=== PATIENT | female | born 1935 | race Caucasian/White ===

== ENCOUNTER 2019-01-11 20:01 | Inpatient (IN) | payer OTHER, MEDICARE ==
[~2019-01-11] VITALS: Ht 157.5 cm; Wt 34.5 kg
[2019-01-11 20:03] VITALS: BP_SYST 139
[2019-01-11] MEDS ORDERED: DEXAMETHASONE SOD PHOSPHATE 10 MG/ML VIAL IVP ONE (20:30)
[2019-01-11] MEDS ORDERED: IPRATROPIUM/ALBUTEROL SULFATE 3 ML AMPUL.NEB (DUONEB) INH ONE ×2 (20:30→21:30)
[2019-01-11] MEDS ORDERED: ACETAMINOPHEN 325 MG TABLET PO ONE (20:30)
[2019-01-11] MEDS ORDERED: ALBU2.5V7 INH (20:53)
[2019-01-11] MEDS ORDERED: ACET-2165 PO (20:53)
[2019-01-11] MEDS ORDERED: BISA10SU61 RC (20:54)
[2019-01-11] MEDS ORDERED: FLUT1AER INH (20:55)
[2019-01-11] MEDS ORDERED: BUPR150T9 PO (20:56)
[2019-01-11] MEDS ORDERED: ESCI10TA PO (20:57)
[2019-01-11] MEDS ORDERED: DOCU250C14 PO (20:57)
[2019-01-11] MEDS ORDERED: FLEETMO RC (20:58)
[2019-01-11 21:01] LABS: HEMATOCRIT 46.5 % (36-48); HEMOGLOBIN 14.8 g/dL (12.0-16.0); RED BLOOD CELL COUNT(AUTO) 5.28 MIL/uL (4.2-6.2); WHITE BLOOD COUNT (AUTO) 14.4 K/uL (4.8-10.8)
[2019-01-11 21:02] LABS: MEAN CORPUSCULAR HEMOGLOBIN 28 pg (27-31); MEAN CORPUSCULAR HGB CONC 32 % (32-36); MEAN CORPUSCULAR VOLUME 88 fL (79.0-98.0); PLATELET COUNT (AUTO) 336 K/uL (130-430); RED CELL DISTRIBUTION WIDTH 18.9 % (9.0-15.0)
[2019-01-11 21:04] LABS: PROTHROMBIN TIME 9.8 SECS (9.5-12.5)
[2019-01-11] MEDS ORDERED: NS 500 ML IV ONE (21:06)
[2019-01-11 21:11] LABS: BAND % (MANUAL) 2 % (0-6); BASOPHILS % (MANUAL) 0 % (0-2); EOSINOPHILS % (MANUAL) 0 % (0-7); LYMPHOCYTES % (MANUAL) 2 % (20-46); MONOCYTES % (MANUAL) 3 % (0-11)
[2019-01-11] MEDS ORDERED: GUAI100S14 PO (21:21)
[2019-01-11] MEDS ORDERED: IPRA4AER INH ×2 (21:25→21:26)
[2019-01-11] MEDS ORDERED: LACT10SO6 PO (21:27)
[2019-01-11] MEDS ORDERED: LEVO88TA5 PO (21:28)
[2019-01-11] MEDS ORDERED: MEDR5TAB PO (21:30)
[2019-01-11] MEDS ORDERED: MEGE800O PO (21:31)
[2019-01-11] MEDS ORDERED: METO25TA6 PO (21:32)
[2019-01-11] MEDS ORDERED: MULT-1100 PO (21:33)
[2019-01-11] MEDS ORDERED: PRED10TA PO (21:33)
[2019-01-11] MEDS ORDERED: PRED20TA PO (21:34)
[2019-01-11] MEDS ORDERED: PRO40 PO (21:35)
[2019-01-11] MEDS ORDERED: SENN8.6T19 PO (21:36)
[2019-01-11] MEDS ORDERED: TEMA15CA5 PO (21:36)
[2019-01-11] MEDS ORDERED: SPIRIVA INH (21:39)
[2019-01-11] MEDS ORDERED: TRAM50TA2 PO (21:40)
[2019-01-11] MEDS ORDERED: VIT60OIN3 TP (21:41)
[2019-01-11 22:01] LABS: ALANINE AMINOTRANSFERASE 17 U/L (12-78); ANION GAP 7 (5-15); ASPARTATE AMINOTRANSFERASE 22 U/L (10-37); CHLORIDE 101 mmol/L (98-107); CREATININE 1.45 mg/dL (0.55-1.30); GLUCOSE 131 mg/dL (70-99); POTASSIUM 5.2 mmol/L (3.5-5.1); SODIUM SERUM 132 mmol/L (136-145); TOTAL BILIRUBIN 0.7 mg/dL (0.0-1.0); UREA NITROGEN, BLOOD 64 mg/dL (8-21)
[2019-01-11 22:02] LABS: ALBUMIN 3.1 g/dL (3.4-4.8)
[2019-01-11] MEDS ORDERED: GAVISCON PO (22:03)
[2019-01-11] MEDS ORDERED: SODIUM CHLORIDE (22:05)
[2019-01-11 22:07] LABS: BILIRUBIN,URINE NEGATIVE (NEGATIVE); BLOOD, URINE 3+ (NEGATIVE); CLARITY/URINE SL CLOUDY (CLEAR); COLOR,URINE YELLOW (YELLOW); GLUCOSE,URINE NEGATIVE (NEGATIVE); KETONES,URINE NEGATIVE (NEGATIVE); LEUKOCYTE ESTERASE ,URINE 3+ (NEGATIVE); NITRITE, URINE NEGATIVE (NEGATIVE); PROTEIN URINE 2+ (NEGATIVE)
[2019-01-11 22:18] LABS: BACTERIA,URINE MANY /HPF (None Seen); MUCUS,URINE None Seen /LPF (None Seen); WBC,URINE >100 /HPF (0-3)
[2019-01-11] MEDS ORDERED: SODIUM POLYSTYRENE SULFONATE 15 GM/60 ML UDBTL PO ONE (22:30)
[2019-01-11 23:37] VITALS: BP_SYST 138
[2019-01-11] MEDS ORDERED: guaiFENesin 200 MG/10 ML UDC PO SCH (23:45)
[2019-01-11] MEDS ORDERED: DOCUSATE SODIUM 250 MG CAPSULE PO PRN (23:45)
[2019-01-11] MEDS ORDERED: BISACODYL 10 MG/SUPPOSITORY RC PRN (23:45)
[2019-01-11] MEDS ORDERED: GAVISCON PO SCH (23:45)
[2019-01-11] MEDS ORDERED: MINERAL OIL 133 ML ENEMA RC PRN (23:45)
[2019-01-11] MEDS ORDERED: ACETAMINOPHEN 325 MG TABLET PO PRN (23:45)
[2019-01-11] MEDS ORDERED: traMADol HCL HCL 50 MG TABLET (ULTRAM) PO PRN (23:45)
[2019-01-12] MEDS ORDERED: ONDANSETRON HCL 4 MG/2 ML VIAL IVP PRN
[2019-01-12] MEDS ORDERED: GENTAMICIN 80 mg/100 mL NS 100 ML IV ONE
[2019-01-12] MEDS ORDERED: FAMOTIDINE PF 20 MG/2 ML VIAL IVP ONE (00:15)
[2019-01-12] MEDS ORDERED: NS IV ONE ×2 (02:00→03:25)
[2019-01-12] MEDS ORDERED: GENTAMICIN 80 MG/100 ML IV ONE ×2 (02:00→03:25)
[2019-01-12] MEDS: IPRATROPIUM/ALBUTEROL SULFATE 3 ML AMPUL.NEB (DUONEB) INH SCH ×6 (03:14→23:00)
[2019-01-12 03:36] VITALS: BP_SYST 138
[2019-01-12] MEDS: METOPROLOL TARTRATE 25 MG TABLET PO SCH ×3 (05:17→22:12)
[2019-01-12 07:22] LABS: BASOPHILS # (AUTO) 0.1 K/uL (0.0-0.2); BASOPHILS % (AUTO) 0.5 % (0.0-2.0); EOSINOPHILS % (AUTO) 0.2 % (0.0-4.0); HEMATOCRIT 37.5 % (36-48); HEMOGLOBIN 12.1 g/dL (12.0-16.0); LYMPHOCYTES # (AUTO) 0.3 K/uL (1.0-5.5); LYMPHOCYTES % (AUTO) 1.9 % (20.5-51.5); MEAN CORPUSCULAR HEMOGLOBIN 28 pg (27-31); MEAN CORPUSCULAR HGB CONC 32 % (32-36); MEAN CORPUSCULAR VOLUME 87 fL (79.0-98.0); MONOCYTES # (AUTO) 0.4 K/uL (0.0-1.0); NEUTROPHILS # (AUTO) 13.9 K/uL (1.8-7.7); NEUTROPHILS % (AUTO) 94.4 % (40.0-70.0); PLATELET COUNT (AUTO) 291 K/uL (130-430); RED BLOOD CELL COUNT(AUTO) 4.31 MIL/uL (4.2-6.2); RED CELL DISTRIBUTION WIDTH 18.1 % (9.0-15.0); WHITE BLOOD COUNT (AUTO) 14.8 K/uL (4.8-10.8)
[2019-01-12 07:30] LABS: ALANINE AMINOTRANSFERASE 20 U/L (12-78); ALBUMIN 2.9 g/dL (3.4-4.8); ANION GAP 10 (5-15); ASPARTATE AMINOTRANSFERASE 22 U/L (10-37); CALCIUM 8.4 mg/dL (8.4-11.0); CHLORIDE 103 mmol/L (98-107); FREE T4 (FREE THYROXINE) 0.5 ng/dL (0.6-1.6); GLUCOSE 111 mg/dL (70-99); PHOSPHORUS 3.6 mg/dL (2.7-4.5); POTASSIUM 4.4 mmol/L (3.5-5.1); SODIUM SERUM 136 mmol/L (136-145); THYROID STIMULATING HORMONE 1.48 uIu/mL (0.34-4.82); TOTAL BILIRUBIN 0.7 mg/dL (0.0-1.0); UREA NITROGEN, BLOOD 59 mg/dL (8-21)
[2019-01-12 08:00] VITALS: BP_SYST 114
[2019-01-12] MEDS ORDERED: LACTULOSE 20 GM/30 ML UDC PO PRN (08:00)
[2019-01-12] MEDS ORDERED: VITS A AND D/WHITE PET/LANOLIN 113.4 GM TUBE TP PRN (08:00)
[2019-01-12] MEDS: methylPREDNISolone SOD SUCC 40 MG/ML VIAL IVP SCH ×2 (08:24→19:57)
[2019-01-12] MEDS: FLUTICASONE/VILANTEROL 1 EACH BLST.W.DEV INH SCH (08:24)
[2019-01-12] MEDS: MEGESTROL ACETATE 400 MG/10 ML UDC PO SCH (08:25)
[2019-01-12] MEDS: PANTOPRAZOLE SODIUM 40 MG TAB PO SCH (08:25)
[2019-01-12] MEDS: MULTIVITS,CA,MINERALS/IRON/FA 1 TABLET PO SCH (08:25)
[2019-01-12] MEDS: FAMOTIDINE PF 20 MG/2 ML VIAL IVP SCH (08:25)
[2019-01-12] MEDS: LEVOTHYROXINE SODIUM 0.088 MG TABLET PO SCH (08:27)
[2019-01-12 11:38] VITALS: BP_SYST 110
[2019-01-12] MEDS: D5/0.45 NS 1,000 ML IV SCH ×2 (14:53)
[2019-01-12 15:14] VITALS: BP_SYST 132
[2019-01-12 19:16] VITALS: BP_SYST 138
[2019-01-12] MEDS: LEVOFLOXACIN 250 MG/D5W 50 ML IV SCH (19:57)
[2019-01-12] MEDS: MIRTAZAPINE 15 MG TABLET PO SCH (22:09)
[2019-01-12 23:44] VITALS: BP_SYST 115
[2019-01-13] MEDS: IPRATROPIUM/ALBUTEROL SULFATE 3 ML AMPUL.NEB (DUONEB) INH SCH ×6 (03:00→23:27)
[2019-01-13 05:06] VITALS: BP_SYST 153
[2019-01-13] MEDS: D5/0.45 NS 1,000 ML IV SCH ×2 (05:10→18:52)
[2019-01-13] MEDS: METOPROLOL TARTRATE 25 MG TABLET PO SCH ×3 (06:20→21:01)
[2019-01-13] MEDS: LEVOTHYROXINE SODIUM 0.088 MG TABLET PO SCH (06:20)
[2019-01-13 07:12] LABS: HEMATOCRIT 41.1 % (36-48); RED BLOOD CELL COUNT(AUTO) 4.66 MIL/uL (4.2-6.2); WHITE BLOOD COUNT (AUTO) 10.9 K/uL (4.8-10.8)
[2019-01-13 07:13] LABS: BASOPHILS % (AUTO) 0.2 % (0.0-2.0); LYMPHOCYTES # (AUTO) 0.2 K/uL (1.0-5.5); LYMPHOCYTES % (AUTO) 2.3 % (20.5-51.5); MEAN CORPUSCULAR HEMOGLOBIN 28 pg (27-31); MEAN CORPUSCULAR HGB CONC 32 % (32-36); MEAN CORPUSCULAR VOLUME 88 fL (79.0-98.0); MONOCYTES % (AUTO) 4.4 % (1.7-9.3); NEUTROPHILS # (AUTO) 10.1 K/uL (1.8-7.7); NEUTROPHILS % (AUTO) 93.1 % (40.0-70.0); PLATELET COUNT (AUTO) 286 K/uL (130-430)
[2019-01-13 07:14] LABS: MONOCYTES # (AUTO) 0.5 K/uL (0.0-1.0)
[2019-01-13 07:47] VITALS: BP_SYST 131
[2019-01-13 08:17] LABS: ALANINE AMINOTRANSFERASE 20 U/L (12-78); ANION GAP 5 (5-15); ASPARTATE AMINOTRANSFERASE 23 U/L (10-37); CALCIUM 8.5 mg/dL (8.4-11.0); CHLORIDE 105 mmol/L (98-107); CREATININE 0.75 mg/dL (0.55-1.30); GLUCOSE 105 mg/dL (70-99); POTASSIUM 4.5 mmol/L (3.5-5.1); SODIUM SERUM 139 mmol/L (136-145); THYROID STIMULATING HORMONE 2.77 uIu/mL (0.34-4.82); TOTAL BILIRUBIN 0.6 mg/dL (0.0-1.0); UREA NITROGEN, BLOOD 41 mg/dL (8-21)
[2019-01-13] MEDS ORDERED: MAG-AL HYDROX/SIMETH 30 ML UDC PO PRN (08:30)
[2019-01-13] MEDS: PANTOPRAZOLE SODIUM 40 MG TAB PO SCH (09:29)
[2019-01-13] MEDS: methylPREDNISolone SOD SUCC 40 MG/ML VIAL IVP SCH ×2 (09:29→20:52)
[2019-01-13] MEDS: FAMOTIDINE PF 20 MG/2 ML VIAL IVP SCH (09:29)
[2019-01-13] MEDS: MEGESTROL ACETATE 400 MG/10 ML UDC PO SCH (09:29)
[2019-01-13] MEDS: MULTIVITS,CA,MINERALS/IRON/FA 1 TABLET PO SCH (09:29)
[2019-01-13] MEDS: FLUTICASONE/VILANTEROL 1 EACH BLST.W.DEV INH SCH (09:43)
[2019-01-13 12:39] VITALS: BP_SYST 145
[2019-01-13 16:18] VITALS: BP_SYST 149
[2019-01-13 20:30] VITALS: BP_SYST 132
[2019-01-13] MEDS: LEVOFLOXACIN 250 MG/D5W 50 ML IV SCH (20:50)
[2019-01-13] MEDS: MIRTAZAPINE 15 MG TABLET PO SCH (20:53)
[2019-01-14 01:05] VITALS: BP_SYST 144
[2019-01-14] MEDS: IPRATROPIUM/ALBUTEROL SULFATE 3 ML AMPUL.NEB (DUONEB) INH SCH ×3 (03:00→11:37)
[2019-01-14 06:10] VITALS: BP_SYST 162
[2019-01-14] MEDS: LEVOTHYROXINE SODIUM 0.088 MG TABLET PO SCH (06:16)
[2019-01-14] MEDS: METOPROLOL TARTRATE 25 MG TABLET PO SCH ×2 (06:16→14:19)
[2019-01-14 07:45] VITALS: BP_SYST 132
[2019-01-14] MEDS ORDERED: GENTAMICIN 80 MG/ ISO-OSM 100 ML PREMIX IV SCH (09:00)
[2019-01-14] MEDS: MEGESTROL ACETATE 400 MG/10 ML UDC PO SCH (09:31)
[2019-01-14] MEDS: FAMOTIDINE PF 20 MG/2 ML VIAL IVP SCH (09:31)
[2019-01-14] MEDS: MULTIVITS,CA,MINERALS/IRON/FA 1 TABLET PO SCH (09:31)
[2019-01-14] MEDS: PANTOPRAZOLE SODIUM 40 MG TAB PO SCH (09:31)
[2019-01-14] MEDS: methylPREDNISolone SOD SUCC 40 MG/ML VIAL IVP SCH (09:31)
[2019-01-14] MEDS: FLUTICASONE/VILANTEROL 1 EACH BLST.W.DEV INH SCH (09:33)
[2019-01-14] MEDS: D5/0.45 NS 1,000 ML IV SCH (09:33)
[2019-01-14 12:31] VITALS: BP_SYST 152
[2019-01-14 15:29] VITALS: BP_SYST 134
== END 2019-01-14 15:50 | disposition hospice, inpatient (51) | DRG 871 ==
LOC: SED 20:01 → STU 22:42
PROVIDERS: ADMIT Internal Medicine; ATTEND Family Medicine
DX: A41.9 Sepsis, unspecified organism (principal); J96.21 Acute and chronic respiratory failure with hypoxia; E43 Unspecified severe protein-calorie malnutrition; J44.1 Chronic obstructive pulmonary disease with (acute) exacerbation; I50.30 Unspecified diastolic (congestive) heart failure; R64 Cachexia; Z68.1 Body mass index [BMI] 19.9 or less, adult; N39.0 Urinary tract infection, site not specified; E87.1 Hypo-osmolality and hyponatremia; J44.0 Chronic obstructive pulmonary disease with (acute) lower respiratory infection; E03.9 Hypothyroidism, unspecified; E86.0 Dehydration; F03.90 Unspecified dementia, unspecified severity, without behavioral disturbance, psychotic disturbance, mood disturbance, and anxiety; F17.200 Nicotine dependence, unspecified, uncomplicated; F32.9 Major depressive disorder, single episode, unspecified; I11.0 Hypertensive heart disease with heart failure; Z66 Do not resuscitate; K21.9 Gastro-esophageal reflux disease without esophagitis; M81.0 Age-related osteoporosis without current pathological fracture; R62.7 Adult failure to thrive; Z51.5 Encounter for palliative care; J20.9 Acute bronchitis, unspecified; I27.20 Pulmonary hypertension, unspecified; Z74.01 Bed confinement status; Z88.0 Allergy status to penicillin; Z88.8 Allergy status to other drugs, medicaments and biological substances; Z87.81 Personal history of (healed) traumatic fracture
CPT/HCPCS: 36415; 36600; 71045; 80053; 81000-TC; 82803-TC; 83605; 83880; 84100-TC; 84439; 84443-TC; 84484; 85007; 85025; 85027; 85610-TC; 85730-TC; 87040-TC; 87081; 87086; 87186-TC; 93005; 93306; 94640; 94760; 96365; 96366; 96375; 97116-GP; 97530-GP; 99285; G0378; J1030; J1100; J1580; J1956; J3490; J7040; J7620